=== PATIENT | male | born 1940 | race Caucasian/White ===

== ENCOUNTER → 2017-04-09 | Outpatient (CLI) | payer MEDICARE ==
[~2017-04-09] MED LIST: CATHETER FLUSH 10 ML SYR IV PRN; IOHEXOL 350 MG/ML 100 ML (OMNIPAQUE 350) VIAL IV ONE; NS 100 ML (IVPB) BAG IV ONE
--- NOTE | 2017-04-09 16:46 | Diagnostic Imaging Report ---
PROCEDURE: CT chest, abdomen, and pelvis with contrast. TECHNIQUE: Multiple contiguous axial images were obtained through the chest, abdomen, and pelvis after the administration of intravenous contrast. INDICATION: Weight loss. Cough. 100 mL of Omnipaque 350 is administered intravenously. FINDINGS: CT chest: There is advanced upper lobe predominant emphysema seen bilaterally. Also significant emphysema involvement in addition is seen in the right lower lobe. There is a right upper lobe prominent consolidation noted with the air bronchograms favored to be related to pneumonia. There is a rbupt-ba-rvsxoxue right pleural effusion. Basilar subsegmental atelectasis is seen in the right lower lobe. The heart size is normal. The thoracic aorta is normal in caliber. No pericardial effusion. No effusion on the left side. The osseous structures demonstrate degenerative changes with lower thoracic spine disc changes and vacuum phenomena noted. CT abdomen and pelvis: The liver, the gallbladder, the spleen, the pancreas, and the adrenal glands appear unremarkable. The kidneys have symmetric enhancement. Bilateral simple appearing renal cysts are seen. There is no hydronephrosis in either kidney. The abdominal aorta is normal in caliber. No para-aortic significantly enlarged lymph node is seen. There is a suggestion of a high-grade stenosis and probable occlusion in the left common iliac and left external iliac arteries. At least moderate stenosis in the proximal right common iliac artery and in the right external iliac artery is seen. There is no bowel obstruction. No significant free fluid or fluid collection in the abdomen or pelvis is seen. Moderate amount of fecal material is seen in the colon and rectum. The mesenteric fat is sparse as well as subcutaneous fat in the body suggestive of cachexia. SMA and the celiac trunk and MELANI are generally patent. The osseous structures demonstrate prominent degenerative changes. IMPRESSION: CT chest: 1. Airspace consolidation in the right upper lobe is presumably related to pneumonia, with an associated [id number] right pleural effusion. Correlate clinically and with follow-up radiographs in six weeks is recommended to ensure complete resolution. 2. Advanced emphysema. 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 Correlate clinically. Dictated by: Dictated on workstation # [id number]
== END ==
LOC: RAD 14:30
PROVIDERS: ATTEND Pediatrics
DX: J43.9 Emphysema, unspecified (principal); I74.5 Embolism and thrombosis of iliac artery; R63.4 Abnormal weight loss
CPT/HCPCS: 71260; 74177

== ENCOUNTER → 2017-04-22 | Outpatient (CLI) | payer MEDICARE ==
--- NOTE | 2017-04-23 10:53 | Diagnostic Imaging Report ---
EXAMINATION: PET-CT. TECHNIQUE: Serum glucose level at the time of the study is: 93 mg/dL. 11.1 mCi of FDG was administered intravenously followed by obtaining PET images with corresponding noncontrast CT scan images. The CT scan was performed for anatomic correlation and attenuation correction and was not performed according to the diagnostic protocol of the areas covered. The scan was performed from the whole body. INDICATION: Lung mass. FINDINGS: There is symmetric uptake in the brain. In the neck, there is no suspicious hypermetabolic mass. In the chest, there is significant hypermetabolism involving the area of consolidation in the right upper lobe and in the right lung apex as well as diffuse hypermetabolism along the pleura, suggestive of malignancy. The highest SUV is within the right upper lobe parenchyma with an 8.5 maximum SUV of most of the area of consolidation. There is a particularly significantly hypermetabolic nodular area, however, in the medial aspect of the right middle lobe with a maximum SUV of 20. There is a moderate right pleural effusion. There is hypermetabolism along the mediastinal medial aspect on the right side which is favored to be pleural based rather than an actual mediastinal lymph node involvement. No contralateral lung or hilar involvement is seen. In the abdomen and pelvis, physiologic excretion in the urinary tract is seen and likely physiologic mild areas of activity are seen in the bowel loops. There is a hypermetabolic lesion seen within the left sacral ala superiorly with a maximum SUV of 5.8. It is estimated to be about 1 cm in size and demonstrates no clear lytic or sclerotic lesion on the CT scan. This is, however, concerning for metastatic disease. In the lower extremities, there is no hypermetabolic mass seen. IMPRESSION: 1. Findings are suggestive of lung cancer in an infiltrative pattern along the right upper lobe consolidation with pleural metastasis on the right side. Mesothelioma with right upper lobe lung involvement is the most likely consideration. 2. Hypermetabolic lesion estimated to be around 1 cm in size in the upper aspect of the left sacral ala, occult by CT scan, is suspicious for bone metastasis. Dictated by: Dictated on workstation # [id number]
== END ==
LOC: RAD 11:18
PROVIDERS: ATTEND Pediatrics
DX: R91.8 Other nonspecific abnormal finding of lung field (principal)
CPT/HCPCS: 78816

== ENCOUNTER 2017-05-13 13:49 | Inpatient (IN) | payer MEDICARE ==
[~2017-05-13] VITALS: Ht 177.8 cm; Wt 49.0 kg
[~2017-05-13 13:49] MED LIST changes: -CATHETER FLUSH 10 ML SYR IV PRN; -IOHEXOL 350 MG/ML 100 ML (OMNIPAQUE 350) VIAL IV ONE; +LEVO750T9 PO; -NS 100 ML (IVPB) BAG IV ONE; +ONDA8TAB9 SL; +POLY119P5 PO; +PROM25SU43 RC
--- OUTSIDE RECORDS SUMMARY | 2017-05-13 15:20 | XMS REPORT | Continuity of Care Document ---
Author Author [facility] Address Unknown Phone Unavailable Allergies Medications Problems Procedures Results Encounters ACCT No. Visit Date/Time Discharge Status Pt. Type Provider Facility Loc./Unit Complaint [id number] 12/11/2016 10:31:08 12/11/2016 23: 59:59 CLS Outpatient JODI BRAR
[2017-05-13] MEDS ORDERED: DOCUSATE SODIUM 100 MG (COLACE) CAP PO PRN (16:00)
[2017-05-13] MEDS ORDERED: CATHETER FLUSH 10 ML SYR IV PRN (16:00)
[2017-05-13 16:06] VITALS: BP 97/55
[2017-05-13] MEDS ORDERED: LEVO750T39 PO (16:10)
[2017-05-13] MEDS ORDERED: POLY255P PO (16:10)
[2017-05-13] MEDS ORDERED: PROM25SU44 RC (16:10)
[2017-05-13] MEDS ORDERED: MIRT15TA6 PO (16:10)
[2017-05-13] MEDS ORDERED: ONDA8TAB13 SL (16:10)
[2017-05-13] MEDS: NS IV 1000 ML 1,000 ML IV SCH ×2 (16:44→23:58)
[2017-05-13 17:24] LABS: BASOPHILS % (AUTO) 0 % (0-10); EOSINOPHILS % (AUTO) 0 % (0-10); LYMPHOCYTES # (AUTO) 0.8 X 10^3 (1.0-4.0); LYMPHOCYTES % (AUTO) 10 % (12-44); MEAN CORPUSCULAR HEMOGLOBIN 29 PG (25-34); MEAN CORPUSCULAR HGB CONC 33 G/DL (32-36); MEAN CORPUSCULAR VOLUME 87 FL (80-99); MEAN PLATELET VOLUME 9.3 FL (7.4-10.4); MONOCYTES # (AUTO) 0.4 X 10^3 (0.0-1.0); MONOCYTES % (AUTO) 5 % (0-12); NEUTROPHILS # (AUTO) 6.8 X 10^3 (1.8-7.8); NEUTROPHILS % (AUTO) 85 % (42-75); PLATELET COUNT 314 10^3/uL (130-400); RED BLOOD COUNT 3.93 10^6/uL (4.35-5.85); RED CELL DISTRIBUTION WIDTH 16.6 % (10.0-14.5)
[2017-05-13 17:52] LABS: ALANINE AMINOTRANSFERASE 8 U/L (0-55); ALBUMIN 3.1 GM/DL (3.2-4.5); ANION GAP 18 MMOL/L (5-14); ASPARTATE AMINO TRANSFERASE 28 U/L (5-34); BILIRUBIN,TOTAL 0.6 MG/DL (0.1-1.0); BLOOD UREA NITROGEN 22 MG/DL (7-18); BUN/CREATININE RATIO 21; CALCIUM 9.8 MG/DL (8.5-10.1); CARBON DIOXIDE 20 MMOL/L (21-32); CHLORIDE 101 MMOL/L (98-107); CREATININE SERUM 1.06 MG/DL (0.60-1.30); GFR ESTIMATED > 60; GLUCOSE 81 MG/DL (70-105); MAGNESIUM 1.6 MG/DL (1.8-2.4); POTASSIUM 4.1 MMOL/L (3.6-5.0); SODIUM 139 MMOL/L (135-145); TOTAL PROTEIN 7.5 GM/DL (6.4-8.2)
[2017-05-13 18:06] LABS: KETONES,URINE 4+ (NEGATIVE); LEUKOCYTE ESTERASE ,URINE 1+ (NEGATIVE); NITRITE,URINE NEGATIVE (NEGATIVE); PH,URINE 5 (5-9); PROTEIN,URINE 2+ (NEGATIVE); UROBILINOGEN,URINE 1 MG/DL (NORMAL)
[2017-05-13] MEDS: ONDANSETRON 4 MG/2 ML (SDV) Z0FRAN IVP PRN (18:07)
[2017-05-13 18:17] LABS: BILIRUBIN,URINE 1+ (NEGATIVE)
[2017-05-13 18:18] LABS: HYALINE CASTS, URINE >50 /LPF
[2017-05-13] MEDS ORDERED: INFLUENZA TRIvalent 2017-2018 0.5 ML/45 MCG SYR IM ONE (19:15)
--- NOTE | 2017-05-13 19:49 | Diagnostic Imaging Report ---
EXAMINATION: PA and lateral views of the chest. COMPARISON: 05/08/2017. INDICATION: Cough, shortness of breath, and weight loss. FINDINGS: There is right perihilar consolidation, stable from the previous exam with right upper lobe patchy infiltrate seen. There is pleural thickening and small to moderate-sized pleural effusion on the right side noted. The left lung is clear. The heart size is normal. No pneumothorax. IMPRESSION: Stable large consolidation in the right perihilar region with suspected underlying mass and right upper lobe patchy infiltrates. There is right-sided pleural thickening and pleural effusion as well. No significant change. Dictated by: Dictated on workstation # [id number]
[2017-05-13 20:00] VITALS: BP 119/64
--- NOTE | 2017-05-13 20:43 | History & Physicial (CHS) ---
HPI History of Present Illness: 77 yo male sent to hospital for direct admission due to marked debility and inability to keep down any food for a week or more. He reports a history of weight loss starting November of up 60 lbs currently. In the last 3 weeks, he developed cough, nausea and vomiting with any intake, fatigue and shortness of breath. He was seen at [facility] and had a CXR with concerning findings followed by a CT scan which showed right upper lobe abnormality concerning for lung cancer, followed by PET scan which showed lesion in left iliac. He was to have an biopsy but has become so weak and sick to his stomach that his family didn't feel he would make it to his biopsy. Additionally, he has told Dr. Schultz that he does not want chemotherapy or radiation, etc even if he has lung cancer. He states he is concerned about racking up large medical bills before he dies which will burden his family. He also notes that he is 77 years old and has done what he wants with his life. Date seen by provider: May 13, 2017 Time Seen by Provider: 17:10 Attending Physician Kaila Ugalde MD PCP Liliane Schultz MD Consult Date of Admission May 13, 2017 at 15:12 Home Medications Home Medications Reviewed patient Home Medication Reconciliation Form Allergies Coded Allergies: No Known Drug Allergies (Unverified , 05/13/17) OHC-Glhtkf-Fbglog Hx Patient Social History Alcohol Use: Denies Use Recreational Drug Use: No Smoking Status: Current Everyday Smoker Type Used: Cigars Recent Foreign Travel: No Contact w/other who traveled: No Recent Hopitalizations: No Physical Abuse Screen: No Sexual Abuse: No Past Medical History PMHx: Denies PSurgHx: Denies Family Medical History Significant Family History: No Pertinent Family Hx Review of Systems ([facility]) Constitutional: No fever, malaise, weakness EENTM: No blurred vision, No double vision, No nose congestion Respiratory: cough, dyspnea on exertion, short of breath Cardiovascular: No chest pain Gastrointestinal: No abdominal pain, constipation, No diarrhea, No melena, nausea, vomiting Genitourinary: no symptoms reported Musculoskeletal: No joint pain, muscle pain Skin: No rash Psychiatric/Neurological: No Symptoms Reported, Denies Headache, Other ( dizziness with standing) Physical Exam-([facility]) Physical Exam Vital Signs VS - Last 72 Hours, by Label 05/13/17 16:06 Temp 96.3 Pulse 97 Resp 18 B/P (MAP) 97/55 Pulse Ox 94 O2 Delivery Room Air Capillary Refill : General Appearance: no apparent distress, cachetic Respiratory: no accessory muscle use, decreased breath sounds, wheezing Cardiovascular: no edema, no murmur, other (occasional irregular beat) Gastrointestinal: normal bowel sounds, non tender, soft Extremities: no pedal edema Neurologic/Psychiatric: alert, normal mood/affect Skin: warm/dry Clinical Quality Measures DVT/VTE Risk/Contraindication: Risk Factor Score Per Nursin RFS Level Per Nursing on Admit: 4+=Very High Copy Copies To 1: LILIANE SCHULTZ MD Assessment/Plan Assessment/Plan Admission Dx Debility Nausea/vomiting Suspected lung cancer Plan Debility- PT, suspect due to combination of likely lung cancer and poor intake Check CBC Nausea/vomiting- ondansetron, promethazine prn, suspect due to underlying disease noted below -Check labs for possible dehydration/renal insufficiency Suspected lung cancer with associated wasting- work-up in progress, CT concerning for R sided mass, has already been treated with levofloxacin for possible infiltrate also associated. Is afebrile, will follow-up CBC. -Had a long discussion with patient about his wishes, he is insistent he doesn' t want to "rack up bills", but he also does state he is satisfied with his life and that he knows everyone has to sometime and he is fairly confident he does not want to go through chemotherapy/radiation or other aggressive treatments. He is certain he does not want an attempt at resuscitation and requests to be DNAR status. His family is not present emilee, discussed that it would be good to have a family discussion, as outpatient consideration for hospice has already been done and declined. Discussed whether he wants to proceed with biopsy and he is undecided, but seems to be at least somewhat interested in proceeding if it is not an aggressive procedure. I agree proceeding with biopsy may be helpful for him and his family to confirm his diagnosis, but if he is confident he would not pursue any treatment, a biopsy is not needed. He will discuss further with his emilee and we will readdress tomorrow. DVT ppx- enoxaparin KAILA UGALDE MD May 13, 2017 20:43
[2017-05-13] MEDS ORDERED: MAGNESIUM 1 GM/100 ML IVPB 100 ML IV ONE (21:15)
[2017-05-14] VITALS: BP 104/51
[2017-05-14 04:00] VITALS: BP 101/46
[2017-05-14 06:19] LABS: MEAN PLATELET VOLUME 8.6 FL (7.4-10.4); RED BLOOD COUNT 3.09 10^6/uL (4.35-5.85); RED CELL DISTRIBUTION WIDTH 16.3 % (10.0-14.5); WHITE BLOOD COUNT 6.7 10^3/uL (4.3-11.0)
[2017-05-14] MEDS: NS IV 1000 ML 1,000 ML IV SCH ×4 (06:28→20:06)
[2017-05-14 06:32] LABS: ANION GAP 12 MMOL/L (5-14); BLOOD UREA NITROGEN 19 MG/DL (7-18); BUN/CREATININE RATIO 24; CALCIUM 8.5 MG/DL (8.5-10.1); CARBON DIOXIDE 22 MMOL/L (21-32); CHLORIDE 105 MMOL/L (98-107); GFR ESTIMATED > 60; GLUCOSE 78 MG/DL (70-105); MAGNESIUM 1.8 MG/DL (1.8-2.4); POTASSIUM 3.6 MMOL/L (3.6-5.0); SODIUM 139 MMOL/L (135-145)
[2017-05-14] MEDS: RT-ALBUTEROL/IPRATROPIUM 3 ML (DUONEB) VIAL INH SCH ×3 (07:45→21:38)
[2017-05-14 08:00] VITALS: BP 94/49
--- NOTE | 2017-05-14 09:22 | Physical Therapy Evaluation ---
PT Evaluation-General Medical Diagnosis Admission Date May 13, 2017 at 15:12 Medical Diagnosis: Debility, Nausea, vomiting Onset Date: May 13, 2017 Therapy Diagnosis Therapy Diagnosis: weakness Height/Weight Height (Feet): 5 Height (Inches): 10.00 Weight (Pounds): 108 Weight (Ounces): 0.0 Precautions Precautions/Isolations: Fall Prevention, Standard Precautions Weight Bear Status Right Lower Extremity: Right Full Weight Bearing Left Lower Extremity: Left Full Weight Bearing Referral Physician: Monica Ugalde MD Reason for Referral: Evaluation/Treatment, Strengthening, Gait Medical History Pertinent Medical History: Smoking Reviewed History: Yes Social History Home: Single Level Current Living Status: Spouse Entry Into Home: Stairs Without Railing PT Steps Into Home: 3 Prior/Core FIM Prior Level of Function Functional [place] Measure 0=Not Assessed/NA 4=Minimal Assistance 1=Total Assistance 5=Supervision or Setup 2=Maximal Assistance 6=Modified [place] 3=Moderate Assistance 7=Complete [place] Bed Mobility: 7 Transfers (B,C,W/C) (FIM): 7 Gait: 7 Locomotion: 7 PT Evaluation-Current Subjective Patient is laying in bed upon PT entering the room. Patient's is present. Patient reports he is doing fine today other than recent weakness due to extreme weight loss and inability to eat. He agrees to PT eval. Pain Numeric Pain Scale: 0-No Pain Location: No Pain Reported Objective Patient Orientation: Person, Place, Normal For Age Attachments: IV ROM/Strength ROM Upper Extremities WNL ROM Lower Extremities WNL Strength Upper Extremities 5/5 gross bilateral Strength Lower Extremities 5/5 gross bilateral Integumentary/Posture Integumentary skin intact Bowel Incontinence: No Bladder Incontinence: No Neuromuscular (Tone, Coordination, Reflexes) NT Sensory Vision: Functional Hearing: Impaired Sensation Right Upper Extremit: Intact Sensation Left Upper Extremity: Intact Sensation Right Lower Extremit: Intact Sensation Left Lower Extremity: Intact Transfers Functional [place] Measure 0=Not Assessed/NA 4=Minimal Assistance 1=Total Assistance 5=Supervision or Setup 2=Maximal Assistance 6=Modified [place] 3=Moderate Assistance 7=Complete [place] Transfers (B, C, W/C) (FIM): 5 Scootin Rollin Supine to/from Sit: 5 Sit to/from Stand: 5 Patient performed all observed transfers with SBA from PT. Gait Mode of Locomotion: Walk Anticipated Mode of Locomotion: Walk Gait (FIM): 4 Distance: 300' Gait Level of Assist: 4 Gait Persons Needed: 1 Comments/Gait Description Patient walks with normal reciprocal gait pattern. Patient does not use an assistive device, but PT holds on to patient gait belt due to recent reported weakness. Balance Sitting Static: Normal Sitting Dynamic: Normal Standing Static: Normal Standing Dynamic: Normal Assessment/Needs Patient has excellent tolerance for gait and therapeutic intervention. PT will progress patient gait and exercise per his tolerance. Rehab Potential: Good PT Short Term Goals Short Term Goals Time Frame: May 21, 2017 Transfers (B,C,W/C) (FIM): 7 Gait (FIM): 7 Gait Distance Comment: 300' Gait Level of Assist: 7 PT Plan Problem List Problem List: Activity Tolerance, Functional Strength, Safety, Balance, Gait, Transfer Treatment/Plan Treatment Plan: Continue Plan of Care Treatment Plan: Concurrent Therapy, Functional Activity Mindy, Functional Strength, Gait, Safety, Therapeutic Exercise, Transfers Treatment Duration: May 21, 2017 Frequency: 6 times per week Estimated Hrs Per Day: .25 hour per day (15-30') Patient and/or Family Agrees t: Yes Safety Risks/Education Patient Education: Gait Training, Transfer Techniques, Correct Positioning, Safety Issues Teaching Recipient: Patient Teaching Methods: Demonstration, Discussion Response to Teaching: Verbalize Understanding, Return Demonstration, Reinforcement Needed Discharge Recommendations Plan Patient will perform bed mobility and transfer training, balance and endurance training, functional strengthening, stair training, gait training, and education to improve functional mobility and independence at home. Therapy D/C Recommendations: Home w/ Family Support Time/GCodes Time In: 850 Time Out: 910 Total Billed Treatment Time: 20 Total Billed Treatment 1 visit EVMod 20 min G Codes Necessary: Yes PT/OT Therapy GCodes Therapy Functional Limitation: Physical Therapy Test(s)/Tool used to determine: Level of Assistance Scale Functional Limitation-Current Charge Code: MOBCUR Modifier: CI Functional Limitation-Goal Charge Code: MOBGOAL Modifier: ESTELLE STAFFORD PT May 14, 2017 09:22
--- NOTE | 2017-05-14 10:24 | Speech Therapy Progress Note ---
Therapy Progress Note Speech pathology consult received and the patient's chart was reviewed. The clinician discussed the patient with the RN, who stated his was NPO for a biopsy. Due to this, the clinician will attempt the swallowing evaluation at a later time. ROSALBA BILL May 14, 2017 10:24
[2017-05-14] MEDS ORDERED: PROM25TA14 PO (11:31)
[2017-05-14 12:00] VITALS: BP 106/54
--- NOTE | 2017-05-14 15:51 | Progress Note (SOAP) ---
Subjective Subjective/Events-last exam Lung biopsy was planned this am, but he reported he did not want done when Radiology nurse came to discuss. After further discussion with his and daughter, he is agreeable, plan for tomorrow. He is feeling a little better after IVF overnight. He still states he does not want aggressive treatment even if the biopsy proves a cancer. Review of Systems Date Seen by Provider: May 14, 2017 Time Seen by Provider: 11:36 Objective Exam Last Set of Vital Signs Vital Signs Date Time Temp Pulse Resp B/P (MAP) Pulse Ox O2 Delivery O2 Flow Rate FiO2 05/14/17 12:00 95.7 77 16 106/54 94 Room Air Capillary Refill : I&O Intake and Output 05/15/17 00:00 Intake Total 1100 ml Output Total 250 ml Balance 850 ml Intake Oral 100 ml IV Total 1000 ml Output Urine Total 250 ml General: Alert, No Acute Distress Neuro: Normal Speech Psych/Mental Status: Mental Status NL Results/Procedures Lab Laboratory Tests 05/13/17 16:26: Urine Color YELLOW, Urine Clarity CLEAR, Urine pH 5, Urine Specific Basye 1.025H, Urine Protein 2+H, Urine Glucose (UA) NEGATIVE, Urine Ketones 4+H, Urine Nitrite NEGATIVE, Urine Bilirubin 1+H, Urine Urobilinogen 1, Urine Leukocyte Esterase 1+H, Urine RBC (Auto) 1+H, Urine RBC NONE, Urine WBC 2-5, Urine Crystals NONE, Urine Bacteria NONE, Urine Casts PRESENT, Urine Hyaline Casts >50H, Urine Mucus SMALLH, Urine Culture Indicated NO 05/13/17 17:05: White Blood Count 8.0, Red Blood Count 3.93L, Hemoglobin 11.3L, Hematocrit 34L, Mean Corpuscular Volume 87, Mean Corpuscular Hemoglobin 29, Mean Corpuscular Hemoglobin Concent 33, Red Cell Distribution Width 16.6H, Platelet Count 314, Mean Platelet Volume 9.3, Neutrophils (%) (Auto) 85H, Lymphocytes (%) (Auto) 10L , Monocytes (%) (Auto) 5, Eosinophils (%) (Auto) 0, Basophils (%) (Auto) 0, Neutrophils # (Auto) 6.8, Lymphocytes # (Auto) 0.8L, Monocytes # (Auto) 0.4, Eosinophils # (Auto) 0.0, Basophils # (Auto) 0.0, Sodium Level 139, Potassium Level 4.1, Chloride Level 101, Carbon Dioxide Level 20L, Anion Gap 18H, Blood Urea Nitrogen 22H, Creatinine 1.06, Estimat Glomerular Filtration Rate > 60, BUN /Creatinine Ratio 21, Glucose Level 81, Calcium Level 9.8, Magnesium Level 1.6L , Total Bilirubin 0.6, Aspartate Amino Transf (AST/SGOT) 28, Alanine Aminotransferase (ALT/SGPT) 8, Alkaline Phosphatase 80, Total Protein 7.5, Albumin 3.1L 05/14/17 05:50: White Blood Count 6.7, Red Blood Count 3.09L, Hemoglobin 8.8#L, Hematocrit 27L, Mean Corpuscular Volume 86, Mean Corpuscular Hemoglobin 28, Mean Corpuscular Hemoglobin Concent 33, Red Cell Distribution Width 16.3H, Platelet Count 223, Mean Platelet Volume 8.6, Sodium Level 139, Potassium Level 3.6, Chloride Level 105, Carbon Dioxide Level 22, Anion Gap 12, Blood Urea Nitrogen 19H, Creatinine 0.80, Estimat Glomerular Filtration Rate > 60, BUN/Creatinine Ratio 24, Glucose Level 78, Calcium Level 8.5, Magnesium Level 1.8 Radiology CXR 05/13/17: IMPRESSION: Stable large consolidation in the right perihilar region with suspected underlying mass and right upper lobe patchy infiltrates. There is right-sided pleural thickening and pleural effusion as well. No significant change. Assessment/Plan Assessment/Plan Plan Debility- PT, suspect due to combination of likely lung cancer and poor intake Check CBC -05/14 Hgb decreased today, possibly hemodilution, monior Nausea/vomiting- ondansetron, promethazine prn, suspect due to underlying disease noted below -Check labs for possible dehydration/renal insufficiency -Labs on admit with AG acidosis, suspect from starvation ketoacidosis, improved with IVF overnight Suspected lung cancer with associated wasting- work-up in progress, CT concerning for R sided mass, has already been treated with levofloxacin for possible infiltrate also associated. Is afebrile, will follow-up CBC. 05/13- Had a long discussion with patient about his wishes, he is insistent he doesn't want to "rack up bills", but he also does state he is satisfied with his life and that he knows everyone has to sometime and he is fairly confident he does not want to go through chemotherapy/radiation or other aggressive treatments. He is certain he does not want an attempt at resuscitation and requests to be DNAR status. His family is not present emilee , discussed that it would be good to have a family discussion, as outpatient consideration for hospice has already been done and declined. Discussed whether he wants to proceed with biopsy and he is undecided, but seems to be at least somewhat interested in proceeding if it is not an aggressive procedure. I agree proceeding with biopsy may be helpful for him and his family to confirm his diagnosis, but if he is confident he would not pursue any treatment, a biopsy is not needed. He will discuss further with his emilee and we will readdress tomorrow. 05/14- he does want to pursue biopsy for further information and decision making purposes, but still does not feel he would want aggressive treatment unless there would be a very clear benefit- he does not want to be sick from chemotherapy and repeatedly states he is satisfied with his life and he knows everyone will eventually. His states she is having a hard time seeing him so weak and wonders if a feeding tube would be helpful. Discussed that this would not be beneficial if his goals of care are comfort, and would have questionable benefit even if he were interested in treatment because it is unclear how beneficial treatment would be especially given his already significant decline. They would like to continue to reassess as information is available and his clinical course progresses. DVT ppx- enoxaparin Clinical Quality Measures DVT/VTE Risk/Contraindication: Risk Factor Score Per Nursin RFS Level Per Nursing on Admit: 4+=Very High KAILA SANCHEZ MD May 14, 2017 3:51 pm
[2017-05-14 16:33] VITALS: BP 106/49
[2017-05-14 19:59] VITALS: BP 90/55
[2017-05-14] MEDS: ACETAMINOPHEN 500 MG TAB (TYLENOL) PO PRN (20:06)
[2017-05-15] VITALS: BP 117/56
[2017-05-15] MEDS: NS IV 1000 ML 1,000 ML IV SCH ×4 (02:39→22:32)
[2017-05-15 04:00] VITALS: BP 91/45
[2017-05-15] MEDS: ACETAMINOPHEN 500 MG TAB (TYLENOL) PO PRN (06:47)
[2017-05-15] MEDS: RT-ALBUTEROL/IPRATROPIUM 3 ML (DUONEB) VIAL INH SCH ×3 (07:03→20:32)
[2017-05-15 08:00] VITALS: BP 102/50
[2017-05-15 08:15] LABS: MEAN PLATELET VOLUME 9.4 FL (7.4-10.4); RED BLOOD COUNT 3.6 10^6/uL (4.35-5.85); RED CELL DISTRIBUTION WIDTH 16.5 % (10.0-14.5); WHITE BLOOD COUNT 7.5 10^3/uL (4.3-11.0)
[2017-05-15 08:31] LABS: ANION GAP 9 MMOL/L (5-14); BLOOD UREA NITROGEN 12 MG/DL (7-18); BUN/CREATININE RATIO 19; CALCIUM 7.9 MG/DL (8.5-10.1); CARBON DIOXIDE 20 MMOL/L (21-32); CHLORIDE 110 MMOL/L (98-107); CREATININE SERUM 0.64 MG/DL (0.60-1.30); GFR ESTIMATED > 60; GLUCOSE 91 MG/DL (70-105); SODIUM 139 MMOL/L (135-145)
--- NOTE | 2017-05-15 09:49 | Progress Note (SOAP) ---
Subjective Subjective/Events-last exam Plan for CT guided biopsy today. He states he is feeling okay. Walked some with PT yesterday. Was able to eat some food and keep it down yesterday. Review of Systems Date Seen by Provider: May 15, 2017 Time Seen by Provider: 08:50 Objective Exam Last Set of Vital Signs Vital Signs Date Time Temp Pulse Resp B/P (MAP) Pulse Ox O2 Delivery O2 Flow Rate FiO2 05/15/17 08:00 96.5 66 16 102/50 94 Room Air Capillary Refill : I&O Intake and Output 05/16/17 00:00 Intake Total 1995 ml Output Total 350 ml Balance 1645 ml Intake Oral 0 ml IV Total 1995 ml Output Urine Total 350 ml General: Alert, No Acute Distress, Other (cachectic) Lungs: Normal Air Movement Heart: Regular Rate, No Murmurs Neuro: Normal Speech Psych/Mental Status: Mental Status NL Results/Procedures Lab Laboratory Tests 05/15/17 08:00: White Blood Count 7.5, Red Blood Count 3.60L, Hemoglobin 10.4L, Hematocrit 31L, Mean Corpuscular Volume 86, Mean Corpuscular Hemoglobin 29, Mean Corpuscular Hemoglobin Concent 34, Red Cell Distribution Width 16.5H, Platelet Count 276, Mean Platelet Volume 9.4, Sodium Level 139, Potassium Level 3.0L, Chloride Level 110H, Carbon Dioxide Level 20L, Anion Gap 9, Blood Urea Nitrogen 12, Creatinine 0.64, Estimat Glomerular Filtration Rate > 60, BUN/Creatinine Ratio 19, Glucose Level 91, Calcium Level 7.9L 05/15/17 09:05: Radiology CXR 05/13/17: IMPRESSION: Stable large consolidation in the right perihilar region with suspected underlying mass and right upper lobe patchy infiltrates. There is right-sided pleural thickening and pleural effusion as well. No significant change. Assessment/Plan Assessment/Plan Plan Debility- PT, suspect due to combination of likely lung cancer and poor intake Check CBC -05/14 Hgb decreased today, possibly hemodilution, monior Nausea/vomiting- ondansetron, promethazine prn, suspect due to underlying disease noted below -Check labs for possible dehydration/renal insufficiency -Labs on admit with AG acidosis, suspect from starvation ketoacidosis, improved with IVF overnight Suspected lung cancer with associated wasting- work-up in progress, CT concerning for R sided mass, has already been treated with levofloxacin for possible infiltrate also associated. Is afebrile, will follow-up CBC. 05/13- Had a long discussion with patient about his wishes, he is insistent he doesn't want to "rack up bills", but he also does state he is satisfied with his life and that he knows everyone has to sometime and he is fairly confident he does not want to go through chemotherapy/radiation or other aggressive treatments. He is certain he does not want an attempt at resuscitation and requests to be DNAR status. His family is not present emilee , discussed that it would be good to have a family discussion, as outpatient consideration for hospice has already been done and declined. Discussed whether he wants to proceed with biopsy and he is undecided, but seems to be at least somewhat interested in proceeding if it is not an aggressive procedure. I agree proceeding with biopsy may be helpful for him and his family to confirm his diagnosis, but if he is confident he would not pursue any treatment, a biopsy is not needed. He will discuss further with his emilee and we will readdress tomorrow. 05/14- he does want to pursue biopsy for further information and decision making purposes, but still does not feel he would want aggressive treatment unless there would be a very clear benefit- he does not want to be sick from chemotherapy and repeatedly states he is satisfied with his life and he knows everyone will eventually. His states she is having a hard time seeing him so weak and wonders if a feeding tube would be helpful. Discussed that this would not be beneficial if his goals of care are comfort, and would have questionable benefit even if he were interested in treatment because it is unclear how beneficial treatment would be especially given his already significant decline. They would like to continue to reassess as information is available and his clinical course progresses. 05/15- biopsy today, plan for family meeting tomorrow pm to review his functional status and plans Hypokalemia- follow and replace as needed DVT ppx- enoxaparin Clinical Quality Measures DVT/VTE Risk/Contraindication: Risk Factor Score Per Nursin RFS Level Per Nursing on Admit: 4+=Very High KAILA SANCHEZ MD May 15, 2017 9:48 am
[2017-05-15 09:51] LABS: INR 1.2 (0.8-1.4); PROTHROMBIN TIME PATIENT 15.2 SEC (12.2-14.7)
[2017-05-15] MEDS: POTASSIUM CL 10MEQ/50ML IVPB 50 ML IV SCH ×4 (09:54→13:24)
--- NOTE | 2017-05-15 10:02 | Speech Therapy Progress Note ---
Therapy Progress Note Speech pathology re-attempted swallow evaluation. The patient remains NPO for planned biopsy. The patient's RN was not aware of a swallow evaluation or the necessity for one. Speech pathology will continue to follow up, as necessary. At this time, the patient's reduced intake appears secondary to noted illness. ROSALBA BILL May 15, 2017 10:02
--- NOTE | 2017-05-15 11:20 | Physical Therapy Daily Note ---
PT Daily Note-Current Subjective Patient states he is feeling fine today and that he has not gotten out of bed today. He agrees to PT. Pain Numeric Pain Scale: 0-No Pain Location: No Pain Reported Appearance Patient appears generally healthy. He is left supine in bed with call light and phone in reach. Mental Status Patient Orientation: Normal For Age Attachments: IV Transfers Functional [place] Measure 0=Not Assessed/NA 4=Minimal Assistance 1=Total Assistance 5=Supervision or Setup 2=Maximal Assistance 6=Modified [place] 3=Moderate Assistance 7=Complete IndependenceIRFPAI Quality Coding Scale 6 Independent with activity with or without an assistive device 5 Patient requires set up or clean up by helper. Patient completes activity by themselves 4 Supervision or touching assist (CGA). [place] provide cues , steadying assist 3 The helper provides less than half the effort to complete the activity 2 The helper provides more than half the effort to complete the activity 1 Dependent. The helper does all the effort to complete an activity 7 Patient refused to complete or attempt activity 9 The patient did not perform the activity before the current illness or injury 88 Not attempted due to Medical conditions or safety concerns Transfers (B, C, W/C) (FIM): 6 Scootin Rollin Supine to/from Sit: 6 Sit to/from Stand: 6 Patient mobility in bed is performed mod I. Weight Bearing Right Lower Extremity: Right Full Weight Bearing Left Lower Extremity: Left Full Weight Bearing Gait Training Gait (FIM): 6 Distance: 400' Gait Level of Assist: 6 Patient walks without an assistive device. He occasionally touches a handrail for steadying when he is getting fatigued. Assessment Current Status: Good Progress Patient ambulates safely in the hallway. He is only limited by weakness of his LE due to recent weight loss and inactivity. PT will continue intervention to improve gait distance as well as muscular endurance and strength. PT Short Term Goals Short Term Goals Time Frame: May 21, 2017 Transfers (B,C,W/C) (FIM): 7 Gait (FIM): 7 Gait Distance Comment: 300' Gait Level of Assist: 7 PT Plan Problem List Problem List: Activity Tolerance, Functional Strength, Safety, Balance, Gait, Transfer Treatment/Plan Treatment Plan: Continue Plan of Care Treatment Plan: Concurrent Therapy, Functional Activity Mindy, Functional Strength, Gait, Safety, Therapeutic Exercise, Transfers Treatment Duration: May 21, 2017 Frequency: 6 times per week Estimated Hrs Per Day: .25 hour per day (15-30') Patient and/or Family Agrees t: Yes Time/GCodes Time In: 1018 Time Out: 1031 Total Billed Treatment Time: 13 Total Billed Treatment 1 visit GT 13 min PT/OT Therapy GCodes Therapy Functional Limitation: Physical Therapy Test(s)/Tool used to determine: Level of Assistance Scale Functional Limitation-Current Charge Code: MOBCUR Modifier: CI Functional Limitation-Goal Charge Code: MOBGOAL Modifier: POOJA LUJAN PT May 15, 2017 11:19
[2017-05-15] MEDS ORDERED: fentaNYL INJECTION 100 MCG/2 ML AMP ONE (11:23)
[2017-05-15] MEDS ORDERED: LIDOCAINE 1% INJ 20 ML (XYLOCAINE) VIAL ONE (11:23)
[2017-05-15 12:00] VITALS: BP 104/55
[2017-05-15] MEDS ORDERED: LIDOCAINE 1% INJ 20 ML (XYLOCAINE) VIAL INJ ONE (13:00)
[2017-05-15] MEDS ORDERED: HYDROcodone/APAP 5 MG/325 MG (LORTAB) TAB PO PRN (13:30)
--- NOTE | 2017-05-15 13:30 | Pre-Procedure Progress Note ---
Pre-Procedure Progress Note H&P Reviewed The H&P was reviewed, patient examined and no changes noted. Date H&P Reviewed: May 15, 2017 Time H&P Reviewed: 10:00 Pre-Procedure Diagnosis: right lung mass STEPHANIE MILLER MD May 15, 2017 13:30
--- NOTE | 2017-05-15 14:48 | Diagnostic Imaging Report ---
Expiration AP view of the chest. INDICATION: Right thoracic mass, status post biopsy. FINDINGS: There is a moderate right pleural effusion and increased right perihilar infiltrates with no evidence of pneumothorax. Central right lung and pleural-based masses are suspected. The left lung is clear of focal infiltrate with chronic appearing interstitial thickening. The heart size is normal. When compared to 05/13/17, there is increased right pleural effusion. IMPRESSION: Increased right pleural effusion. Right perihilar and subpleural infiltrates and masses are again noted. Dictated by: Dictated on workstation # [id number]
[2017-05-15 15:30] VITALS: BP 100/53
--- NOTE | 2017-05-15 17:21 | Diagnostic Imaging Report ---
EXAMINATION: CT-guided biopsy-pleura. INDICATION: Pleural-based masses in the right hemothorax. Current history and physical and other medical records are reviewed prior to the procedure. CONSENT: Informed consent was obtained from the patient. The risks, benefits, potential complications and alternatives were reviewed and all questions answered to the patient's satisfaction. The patient's vital signs, cardiac rhythm, and pulse oximetry were observed throughout the procedure by qualified nursing personnel. Sedation/medications: none. FINDINGS: Pleural-based mass in the inferior medial right hemithorax among other from pleural based masses and lung masses are seen. There is also advanced emphysema and right pleural effusion of moderate size.. PROCEDURE: After maximal sterile barrier technique preparation and draping, 1% lidocaine was utilized for local anesthesia. With the patient in left side down position, and via posterior intercostal approach, a 17-gauge guide needle is introduced into the right pleural based paraspinal mass under CT scan guidance. After confirming adequate positioning with saved CT images, multiple 18 gauge core biopsy specimens were obtained. The patient tolerated the procedure well with no immediate complications. IMPRESSION: Successful CT-guided biopsy of inferior medial the right pleural-based mass. Dictated by: Dictated on workstation # [id number]
[2017-05-15 20:00] VITALS: BP 93/50
[2017-05-16] VITALS (7 sets, daily range): BP systolic 99–121; BP diastolic 51–62
[2017-05-16] MEDS: ONDANSETRON 4 MG/2 ML (SDV) Z0FRAN IVP PRN (04:59)
[2017-05-16] MEDS: NS IV 1000 ML 1,000 ML IV SCH ×2 (05:06→10:36)
[2017-05-16 06:25] LABS: MEAN PLATELET VOLUME 9.6 FL (7.4-10.4); RED BLOOD COUNT 3.59 10^6/uL (4.35-5.85); RED CELL DISTRIBUTION WIDTH 16.5 % (10.0-14.5)
[2017-05-16 06:45] LABS: ANION GAP 11 MMOL/L (5-14); BLOOD UREA NITROGEN 9 MG/DL (7-18); BUN/CREATININE RATIO 14; CALCIUM 7.9 MG/DL (8.5-10.1); CARBON DIOXIDE 18 MMOL/L (21-32); CHLORIDE 109 MMOL/L (98-107); CREATININE SERUM 0.63 MG/DL (0.60-1.30); GFR ESTIMATED > 60; GLUCOSE 65 MG/DL (70-105); POTASSIUM 3.3 MMOL/L (3.6-5.0); SODIUM 138 MMOL/L (135-145)
[2017-05-16] MEDS: RT-ALBUTEROL/IPRATROPIUM 3 ML (DUONEB) VIAL INH SCH ×3 (06:59→18:52)
--- NOTE | 2017-05-16 08:28 | Speech Therapy Progress Note ---
Therapy Progress Note The speech pathologist followed up with the patient's RN, Swati, on this date. Per RN, the patient is swallowing "fine" and does not appear to be having any difficulty or displaying any signs/symptoms of aspiration. Both parties agreed, the consult was most likely generated due to reduced oral intake which is secondary to his current illness, not an underlying dysphagia. At this time, the clinician will sign off. If concerns are noted, the clinician asked Swati to re-consult the therapist, who will promptly complete the bedside swallowing evaluation. ROSALBA BILL May 16, 2017 08:28
[2017-05-16] MEDS: POTASSIUM CL 10MEQ/50ML IVPB 50 ML IV SCH ×4 (09:29→12:50)
--- NOTE | 2017-05-16 09:44 | Physical Therapy Daily Note ---
PT Daily Note-Current Subjective Patient agrees to go for a walk to today. He states he feels the same as he has. Pain Numeric Pain Scale: 0-No Pain Location: No Pain Reported Appearance Patient appears generally healthy. He is left with family supine in bed with call light and phone in reach. Mental Status Patient Orientation: Normal For Age Attachments: IV Transfers Functional [place] Measure 0=Not Assessed/NA 4=Minimal Assistance 1=Total Assistance 5=Supervision or Setup 2=Maximal Assistance 6=Modified [place] 3=Moderate Assistance 7=Complete IndependenceIRFPAI Quality Coding Scale 6 Independent with activity with or without an assistive device 5 Patient requires set up or clean up by helper. Patient completes activity by themselves 4 Supervision or touching assist (CGA). [place] provide cues , steadying assist 3 The helper provides less than half the effort to complete the activity 2 The helper provides more than half the effort to complete the activity 1 Dependent. The helper does all the effort to complete an activity 7 Patient refused to complete or attempt activity 9 The patient did not perform the activity before the current illness or injury 88 Not attempted due to Medical conditions or safety concerns Transfers (B, C, W/C) (FIM): 7 Scootin Rollin Supine to/from Sit: 7 Sit to/from Stand: 7 Patient is independent with transfers. Weight Bearing Right Lower Extremity: Right Full Weight Bearing Left Lower Extremity: Left Full Weight Bearing Gait Training Gait (FIM): 7 Distance: >300' Gait Level of Assist: 7 Patient walks independently with normal step through gait pattern. He is educated to continue moving around and walking intermittently throughout the day to avoid sores and other sickness. Assessment Current Status: Good Progress Patient is independent in all therapeutic activities. PT plan is to dismiss patient from services at this point. PT Short Term Goals Short Term Goals Time Frame: May 21, 2017 Transfers (B,C,W/C) (FIM): 7 Gait (FIM): 7 Gait Distance Comment: 300' Gait Level of Assist: 7 PT Plan Treatment/Plan Treatment Plan: Discontinue PT, goals met Treatment Plan: Concurrent Therapy, Functional Activity Mindy, Functional Strength, Gait, Safety, Therapeutic Exercise, Transfers Treatment Duration: May 21, 2017 Frequency: 6 times per week Estimated Hrs Per Day: .25 hour per day (15-30') Patient and/or Family Agrees t: Yes Dismissal from PT services Safety Risks/Education Patient Education: Gait Training, Reviewed Precautions, Safety Issues Teaching Recipient: Patient Teaching Methods: Discussion Response to Teaching: Verbalize Understanding Discharge Recommendations Therapy D/C Recommendations: Home w/ Family Support Time/GCodes Time In: 858 Time Out: 912 Total Billed Treatment Time: 14 Total Billed Treatment 1 visit GT 14 min G Codes Necessary: Yes PT/OT Therapy GCodes Therapy Functional Limitation: Physical Therapy Test(s)/Tool used to determine: Level of Assistance Scale Functional Limitation-Current Charge Code: MOBCUR Modifier: CI Functional Limitation-Goal Charge Code: MOBGOAL Modifier: CH Functional Limitation-D/C Charge Codes: MOBDC Modifier: CH POOJA PANCHAL PT May 16, 2017 09:44
--- NOTE | 2017-05-16 13:35 | Progress Note (SOAP) ---
Subjective Subjective/Events-last exam Afebrile, no acute events. He tolerated his CT guided biopsy well and denies concerns. He ate a very small amount yesterday evening and vomited this morning around 5. He did just eat some oatmeal which has stayed down so far. Review of Systems Date Seen by Provider: May 16, 2017 Time Seen by Provider: 12:00 Objective Exam Last Set of Vital Signs Vital Signs Date Time Temp Pulse Resp B/P (MAP) Pulse Ox O2 Delivery O2 Flow Rate FiO2 05/16/17 08:15 Room Air 05/16/17 08:00 98.1 83 18 119/57 93 Capillary Refill : I&O Intake and Output 05/16/17 23:59 Intake Total 1000 ml Output Total 700 ml Balance 300 ml Intake Oral 0 ml IV Total 1000 ml Output Urine Total 700 ml # Bowel Movements 1 General: Alert, No Acute Distress, Other (cachectic) Lungs: Other (no respiratory distress) Neuro: Normal Speech Psych/Mental Status: Mental Status NL Results/Procedures Lab Laboratory Tests 05/16/17 05:48: White Blood Count 8.0, Red Blood Count 3.59L, Hemoglobin 10.3L, Hematocrit 31L, Mean Corpuscular Volume 86, Mean Corpuscular Hemoglobin 29, Mean Corpuscular Hemoglobin Concent 34, Red Cell Distribution Width 16.5H, Platelet Count 294, Mean Platelet Volume 9.6, Sodium Level 138, Potassium Level 3.3L, Chloride Level 109H, Carbon Dioxide Level 18L, Anion Gap 11, Blood Urea Nitrogen 9, Creatinine 0.63, Estimat Glomerular Filtration Rate > 60, BUN/Creatinine Ratio 14, Glucose Level 65L, Calcium Level 7.9L Radiology CXR 05/13/17: IMPRESSION: Stable large consolidation in the right perihilar region with suspected underlying mass and right upper lobe patchy infiltrates. There is right-sided pleural thickening and pleural effusion as well. No significant change. Assessment/Plan Assessment/Plan Plan Debility- PT, suspect due to combination of likely lung cancer and poor intake Check CBC -05/14 Hgb decreased today, possibly hemodilution, monitor 05/16 stable at 10.4 Nausea/vomiting- ondansetron, promethazine prn, suspect due to underlying disease noted below -Check labs for possible dehydration/renal insufficiency -Labs on admit with AG acidosis, suspect from starvation ketoacidosis, improved with IVF overnight 05/16 persistent and with hypokalemia, discussed with him and family and he wants to consider whether a feeding tube may be needed. Discussed that it would be appropriate to defer that decision until biopsy results are available to determine treatment plan, especially since he is not entirely confident if he wants to pursue treatment even if a reasonable option is available. He is interested in starting the process, discussed that he would need an EGD first to rule out some sort of compression, etc causing his nausea/vomiting and if not present, surgery still may not recommend a feeding tube. With this understanding, he and family do want to proceed with Surgery consult and likely EGD, consult placed. Hypokalemia- follow and replace as needed Suspected lung cancer with associated wasting- work-up in progress, CT concerning for R sided mass, has already been treated with levofloxacin for possible infiltrate also associated. Is afebrile, will follow-up CBC. 05/13- Had a long discussion with patient about his wishes, he is insistent he doesn't want to "rack up bills", but he also does state he is satisfied with his life and that he knows everyone has to sometime and he is fairly confident he does not want to go through chemotherapy/radiation or other aggressive treatments. He is certain he does not want an attempt at resuscitation and requests to be DNAR status. His family is not present emilee , discussed that it would be good to have a family discussion, as outpatient consideration for hospice has already been done and declined. Discussed whether he wants to proceed with biopsy and he is undecided, but seems to be at least somewhat interested in proceeding if it is not an aggressive procedure. I agree proceeding with biopsy may be helpful for him and his family to confirm his diagnosis, but if he is confident he would not pursue any treatment, a biopsy is not needed. He will discuss further with his emilee and we will readdress tomorrow. 05/14- he does want to pursue biopsy for further information and decision making purposes, but still does not feel he would want aggressive treatment unless there would be a very clear benefit- he does not want to be sick from chemotherapy and repeatedly states he is satisfied with his life and he knows everyone will eventually. His states she is having a hard time seeing him so weak and wonders if a feeding tube would be helpful. Discussed that this would not be beneficial if his goals of care are comfort, and would have questionable benefit even if he were interested in treatment because it is unclear how beneficial treatment would be especially given his already significant decline. They would like to continue to reassess as information is available and his clinical course progresses. 05/15- biopsy today, plan for family meeting tomorrow pm to review his functional status and plans 05/16- see notes under above diagnoses, at this time he wants to pursue any treatment that can be done until he has a formal diagnosis and more information about treatment options. Discussed creating a DPOA and living will and social work offered assistance in doing so if he desires DVT ppx- enoxaparin Clinical Quality Measures DVT/VTE Risk/Contraindication: Risk Factor Score Per Nursin RFS Level Per Nursing on Admit: 4+=Very High KAILA SANCHEZ MD May 16, 2017 1:35 pm
[2017-05-16] MEDS: D5 1/2 NS W/KCL 20 MEQ/L 1,000 ML IV SCH ×2 (13:55→23:48)
[2017-05-17] VITALS: BP 105/55
[2017-05-17 05:57] LABS: MEAN PLATELET VOLUME 9.4 FL (7.4-10.4); RED BLOOD COUNT 3.45 10^6/uL (4.35-5.85); RED CELL DISTRIBUTION WIDTH 16.6 % (10.0-14.5); WHITE BLOOD COUNT 7.4 10^3/uL (4.3-11.0)
[2017-05-17 06:24] LABS: ANION GAP 8 MMOL/L (5-14); BLOOD UREA NITROGEN 5 MG/DL (7-18); BUN/CREATININE RATIO 8; CALCIUM 8.1 MG/DL (8.5-10.1); CARBON DIOXIDE 20 MMOL/L (21-32); CHLORIDE 107 MMOL/L (98-107); CREATININE SERUM 0.65 MG/DL (0.60-1.30); GFR ESTIMATED > 60; GLUCOSE 115 MG/DL (70-105); MAGNESIUM 1.4 MG/DL (1.8-2.4); POTASSIUM 3.7 MMOL/L (3.6-5.0); SODIUM 135 MMOL/L (135-145)
[2017-05-17 08:00] VITALS: BP 105/50
[2017-05-17] MEDS: D5 1/2 NS W/KCL 20 MEQ/L 1,000 ML IV SCH ×2 (10:03→20:25)
[2017-05-17] MEDS: RT-ALBUTEROL/IPRATROPIUM 3 ML (DUONEB) VIAL INH SCH ×3 (10:32→19:45)
[2017-05-17 16:00] VITALS: BP 109/55
--- NOTE | 2017-05-17 19:42 | Progress Note (SOAP) ---
Subjective Subjective/Events-last exam Pt reports feeling better. Feeling more emotionally positive. Tolerated lung biopsy. Still unsure what he wants to do for treatment. Review of Systems Date Seen by Provider: May 17, 2017 Time Seen by Provider: 13:40 Objective Exam Last Set of Vital Signs Vital Signs Date Time Temp Pulse Resp B/P (MAP) Pulse Ox O2 Delivery O2 Flow Rate FiO2 05/17/17 16:00 97.5 91 18 109/55 94 Room Air Capillary Refill : I&O Intake and Output 05/18/17 00:00 Intake Total 1630 ml Output Total 1500 ml Balance 130 ml Intake Oral 630 ml IV Total 1000 ml Output Urine Total 1500 ml General: Alert, Oriented X3, Cooperative Psych/Mental Status: Mental Status NL, Mood NL Results/Procedures Lab Laboratory Tests 05/17/17 05:48: White Blood Count 7.4, Red Blood Count 3.45L, Hemoglobin 10.0L, Hematocrit 29L, Mean Corpuscular Volume 85, Mean Corpuscular Hemoglobin 29, Mean Corpuscular Hemoglobin Concent 34, Red Cell Distribution Width 16.6H, Platelet Count 275, Mean Platelet Volume 9.4, Sodium Level 135, Potassium Level 3.7, Chloride Level 107, Carbon Dioxide Level 20L, Anion Gap 8, Blood Urea Nitrogen 5L, Creatinine 0.65, Estimat Glomerular Filtration Rate > 60, BUN/Creatinine Ratio 8, Glucose Level 115H, Calcium Level 8.1L, Magnesium Level 1.4L Radiology CXR 05/13/17: IMPRESSION: Stable large consolidation in the right perihilar region with suspected underlying mass and right upper lobe patchy infiltrates. There is right-sided pleural thickening and pleural effusion as well. No significant change. Assessment/Plan Assessment/Plan Plan Debility- PT, suspect due to combination of likely lung cancer and poor intake Check CBC -05/14 Hgb decreased today, possibly hemodilution, monitor 05/16 stable at 10.4 Nausea/vomiting- ondansetron, promethazine prn, suspect due to underlying disease noted below -Check labs for possible dehydration/renal insufficiency -Labs on admit with AG acidosis, suspect from starvation ketoacidosis, improved with IVF overnight 05/16 persistent and with hypokalemia, discussed with him and family and he wants to consider whether a feeding tube may be needed. Discussed that it would be appropriate to defer that decision until biopsy results are available to determine treatment plan, especially since he is not entirely confident if he wants to pursue treatment even if a reasonable option is available. He is interested in starting the process, discussed that he would need an EGD first to rule out some sort of compression, etc causing his nausea/vomiting and if not present, surgery still may not recommend a feeding tube. With this understanding, he and family do want to proceed with Surgery consult and likely EGD, consult placed. 05/17 - taking po better Hypokalemia- follow and replace as needed Suspected lung cancer with associated wasting- work-up in progress, CT concerning for R sided mass, has already been treated with levofloxacin for possible infiltrate also associated. Is afebrile, will follow-up CBC. 05/13- Had a long discussion with patient about his wishes, he is insistent he doesn't want to "rack up bills", but he also does state he is satisfied with his life and that he knows everyone has to sometime and he is fairly confident he does not want to go through chemotherapy/radiation or other aggressive treatments. He is certain he does not want an attempt at resuscitation and requests to be DNAR status. His family is not present emilee , discussed that it would be good to have a family discussion, as outpatient consideration for hospice has already been done and declined. Discussed whether he wants to proceed with biopsy and he is undecided, but seems to be at least somewhat interested in proceeding if it is not an aggressive procedure. I agree proceeding with biopsy may be helpful for him and his family to confirm his diagnosis, but if he is confident he would not pursue any treatment, a biopsy is not needed. He will discuss further with his emilee and we will readdress tomorrow. 05/14- he does want to pursue biopsy for further information and decision making purposes, but still does not feel he would want aggressive treatment unless there would be a very clear benefit- he does not want to be sick from chemotherapy and repeatedly states he is satisfied with his life and he knows everyone will eventually. His states she is having a hard time seeing him so weak and wonders if a feeding tube would be helpful. Discussed that this would not be beneficial if his goals of care are comfort, and would have questionable benefit even if he were interested in treatment because it is unclear how beneficial treatment would be especially given his already significant decline. They would like to continue to reassess as information is available and his clinical course progresses. 05/15- biopsy today, plan for family meeting tomorrow pm to review his functional status and plans 05/16- see notes under above diagnoses, at this time he wants to pursue any treatment that can be done until he has a formal diagnosis and more information about treatment options. Discussed creating a DPOA and living will and social work offered assistance in doing so if he desires DVT ppx- enoxaparin Clinical Quality Measures DVT/VTE Risk/Contraindication: Risk Factor Score Per Nursin RFS Level Per Nursing on Admit: 4+=Very High LELIA JOHNSON DO May 17, 2017 19:42
[2017-05-18] VITALS: BP 99/56
[2017-05-18] MEDS: D5 1/2 NS W/KCL 20 MEQ/L 1,000 ML IV SCH ×2 (06:25→16:15)
[2017-05-18 08:00] VITALS: BP 111/56
--- NOTE | 2017-05-18 12:58 | Progress Note (SOAP) ---
Subjective Subjective/Events-last exam Pt sleeping. RN reports his appetite has been better. Ambulated in the [place] last night. Review of Systems Date Seen by Provider: May 18, 2017 Time Seen by Provider: 09:00 Objective Exam Last Set of Vital Signs Vital Signs Date Time Temp Pulse Resp B/P (MAP) Pulse Ox O2 Delivery O2 Flow Rate FiO2 05/18/17 08:17 Room Air 05/18/17 08:00 98.6 92 6 111/56 93 Capillary Refill : I&O Intake and Output 05/19/17 00:00 Intake Total 1100 ml Output Total 1000 ml Balance 100 ml Intake Oral 100 ml IV Total 1000 ml Output Urine Total 1000 ml Results/Procedures Radiology CXR 05/13/17: IMPRESSION: Stable large consolidation in the right perihilar region with suspected underlying mass and right upper lobe patchy infiltrates. There is right-sided pleural thickening and pleural effusion as well. No significant change. Assessment/Plan Assessment/Plan Plan Debility- PT, suspect due to combination of likely lung cancer and poor intake Check CBC -05/14 Hgb decreased today, possibly hemodilution, monitor 05/16 stable at 10.4 Nausea/vomiting- ondansetron, promethazine prn, suspect due to underlying disease noted below -Check labs for possible dehydration/renal insufficiency -Labs on admit with AG acidosis, suspect from starvation ketoacidosis, improved with IVF overnight 05/16 persistent and with hypokalemia, discussed with him and family and he wants to consider whether a feeding tube may be needed. Discussed that it would be appropriate to defer that decision until biopsy results are available to determine treatment plan, especially since he is not entirely confident if he wants to pursue treatment even if a reasonable option is available. He is interested in starting the process, discussed that he would need an EGD first to rule out some sort of compression, etc causing his nausea/vomiting and if not present, surgery still may not recommend a feeding tube. With this understanding, he and family do want to proceed with Surgery consult and likely EGD, consult placed. 05/17 - taking po better Hypokalemia- follow and replace as needed Suspected lung cancer with associated wasting- work-up in progress, CT concerning for R sided mass, has already been treated with levofloxacin for possible infiltrate also associated. Is afebrile, will follow-up CBC. 05/13- Had a long discussion with patient about his wishes, he is insistent he doesn't want to "rack up bills", but he also does state he is satisfied with his life and that he knows everyone has to sometime and he is fairly confident he does not want to go through chemotherapy/radiation or other aggressive treatments. He is certain he does not want an attempt at resuscitation and requests to be DNAR status. His family is not present emilee , discussed that it would be good to have a family discussion, as outpatient consideration for hospice has already been done and declined. Discussed whether he wants to proceed with biopsy and he is undecided, but seems to be at least somewhat interested in proceeding if it is not an aggressive procedure. I agree proceeding with biopsy may be helpful for him and his family to confirm his diagnosis, but if he is confident he would not pursue any treatment, a biopsy is not needed. He will discuss further with his emilee and we will readdress tomorrow. 05/14- he does want to pursue biopsy for further information and decision making purposes, but still does not feel he would want aggressive treatment unless there would be a very clear benefit- he does not want to be sick from chemotherapy and repeatedly states he is satisfied with his life and he knows everyone will eventually. His states she is having a hard time seeing him so weak and wonders if a feeding tube would be helpful. Discussed that this would not be beneficial if his goals of care are comfort, and would have questionable benefit even if he were interested in treatment because it is unclear how beneficial treatment would be especially given his already significant decline. They would like to continue to reassess as information is available and his clinical course progresses. 05/15- biopsy today, plan for family meeting tomorrow pm to review his functional status and plans 05/16- see notes under above diagnoses, at this time he wants to pursue any treatment that can be done until he has a formal diagnosis and more information about treatment options. Discussed creating a DPOA and living will and social work offered assistance in doing so if he desires 05/18 - lung biopsy path report pending DVT ppx- enoxaparin Clinical Quality Measures DVT/VTE Risk/Contraindication: Risk Factor Score Per Nursin RFS Level Per Nursing on Admit: 4+=Very High LELIA JOHNSON DO May 18, 2017 12:58
[2017-05-18 16:00] VITALS: BP 102/55
[2017-05-18] MEDS: RT-ALBUTEROL/IPRATROPIUM 3 ML (DUONEB) VIAL INH SCH (19:13)
[2017-05-19 00:57] VITALS: BP 106/60
[2017-05-19] MEDS: D5 1/2 NS W/KCL 20 MEQ/L 1,000 ML IV SCH ×2 (01:47→02:20)
[2017-05-19 07:48] VITALS: BP 103/51
[2017-05-19] MEDS: RT-ALBUTEROL/IPRATROPIUM 3 ML (DUONEB) VIAL INH SCH (08:13)
--- NOTE | 2017-05-19 11:23 | Discharge Summary ---
Diagnosis/Chief Complaint Date of Admission May 14, 2017 at 12:29 pm Date of Discharge May 19, 2017 Admission Diagnosis Admission Diagnosis SEE BELOW Discharge Diagnosis Debility- PT, suspect due to combination of likely lung cancer and poor intake Check CBC -05/14 Hgb decreased today, possibly hemodilution, monitor 05/16 stable at 10.4 DIS: No change. Nausea/vomiting- ondansetron, promethazine prn, suspect due to underlying disease noted below -Check labs for possible dehydration/renal insufficiency -Labs on admit with AG acidosis, suspect from starvation ketoacidosis, improved with IVF overnight 05/16 persistent and with hypokalemia, discussed with him and family and he wants to consider whether a feeding tube may be needed. Discussed that it would be appropriate to defer that decision until biopsy results are available to determine treatment plan, especially since he is not entirely confident if he wants to pursue treatment even if a reasonable option is available. He is interested in starting the process, discussed that he would need an EGD first to rule out some sort of compression, etc causing his nausea/vomiting and if not present, surgery still may not recommend a feeding tube. With this understanding, he and family do want to proceed with Surgery consult and likely EGD, consult placed. 05/17 - taking po better DIS: Doing much better. Will plan for EGD/PEG as an outpatient once we get diagnosis. Hypokalemia- follow and replace as needed Suspected lung cancer with associated wasting- work-up in progress, CT concerning for R sided mass, has already been treated with levofloxacin for possible infiltrate also associated. Is afebrile, will follow-up CBC. 05/13- Had a long discussion with patient about his wishes, he is insistent he doesn't want to "rack up bills", but he also does state he is satisfied with his life and that he knows everyone has to sometime and he is fairly confident he does not want to go through chemotherapy/radiation or other aggressive treatments. He is certain he does not want an attempt at resuscitation and requests to be DNAR status. His family is not present tonight , discussed that it would be good to have a family discussion, as outpatient consideration for hospice has already been done and declined. Discussed whether he wants to proceed with biopsy and he is undecided, but seems to be at least somewhat interested in proceeding if it is not an aggressive procedure. I agree proceeding with biopsy may be helpful for him and his family to confirm his diagnosis, but if he is confident he would not pursue any treatment, a biopsy is not needed. He will discuss further with his emilee and we will readdress tomorrow. 05/14- he does want to pursue biopsy for further information and decision making purposes, but still does not feel he would want aggressive treatment unless there would be a very clear benefit- he does not want to be sick from chemotherapy and repeatedly states he is satisfied with his life and he knows everyone will eventually. His states she is having a hard time seeing him so weak and wonders if a feeding tube would be helpful. Discussed that this would not be beneficial if his goals of care are comfort, and would have questionable benefit even if he were interested in treatment because it is unclear how beneficial treatment would be especially given his already significant decline. They would like to continue to reassess as information is available and his clinical course progresses. 05/15- biopsy today, plan for family meeting tomorrow pm to review his functional status and plans 05/16- see notes under above diagnoses, at this time he wants to pursue any treatment that can be done until he has a formal diagnosis and more information about treatment options. Discussed creating a DPOA and living will and social work offered assistance in doing so if he desires 05/18 - lung biopsy path report pending DIS: Pt and family decided he would go home for the holidays. I did call and the path report was sent to [facility] for special staining. WE will plan to have a family meeting next Friday to discuss the results as we will likely have them by then. Family agreeable to this plan. Chief Complaint/HPI Chief Complaint/HPI 77 yo male sent to hospital for direct admission due to marked debility and inability to keep down any food for a week or more. He reports a history of weight loss starting November of up 60 lbs currently. In the last 3 weeks, he developed cough, nausea and vomiting with any intake, fatigue and shortness of breath. He was seen at [facility] and had a CXR with concerning findings followed by a CT scan which showed right upper lobe abnormality concerning for lung cancer, followed by PET scan which showed lesion in left iliac. He was to have an biopsy but has become so weak and sick to his stomach that his family didn't feel he would make it to his biopsy. Additionally, he has told Dr. Esparza that he does not want chemotherapy or radiation, etc even if he has lung cancer. He states he is concerned about racking up large medical bills before he dies which will burden his family. He also notes that he is 77 years old and has done what he wants with his life. Discharge Summary-Simple/Stand Consultations Discharge Physical Examination Allergies: Coded Allergies: No Known Drug Allergies (Unverified , 05/13/17) Vitals & I&Os Vital Sign - Last 12Hours Date Time Temp Pulse Resp B/P (MAP) Pulse Ox O2 Delivery O2 Flow Rate FiO2 05/19/17 08:13 92 Room Air 05/19/17 07:48 96.4 81 18 103/51 General Appearance: Alert, Oriented X3, Cooperative Respiratory: Clear to Auscultation, Normal Air Movement Cardiovascular: Regular Rate, Normal S1, Normal S2, No Murmurs, Gallops, Rubs Abdominal: Normal Bowel Sounds, Soft, No Tenderness, No Hepatosplenomegaly, No Masses Extremities: No Clubbing, No Cyanosis, No Edema Psych/Mental Status: Mental Status NL, Mood NL Hospital Course See final discharge diagnosis. Radiology Reviewed CXR 05/13/17: IMPRESSION: Stable large consolidation in the right perihilar region with suspected underlying mass and right upper lobe patchy infiltrates. There is right-sided pleural thickening and pleural effusion as well. No significant change. Discharge Instructions to patient/family Please see electronic discharge instructions given to patient. Discharge Medications Reviewed and agree with Discharge Medication list on patient's Discharge Instruction sheet Clinical Quality Measures DVT/VTE Risk/Contraindication: Risk Factor Score Per Nursin RFS Level Per Nursing on Admit: 4+=Very High Copy Copies To 1: LILIANE ESPARZA MD, JULIE A MD May 19, 2017 11:23
[2017-05-19] MEDS ORDERED: MEGE625O3 PO (11:32)
--- NOTE | 2017-05-19 11:38 | D/C HH Face to Face Order ---
D/C Face to Face Orders Instructions for Patient Patient Instructions/FollowUp: Dr Esparza FridayMay 25 at 1pm Physician to follow Patient: Antoine Discharge Diet for Home: No Restrictions Patient Problems: LUNG MASS - CONCERN FOR LUNG CANCER MALNUTRITION WEAKNESS Goals for Patient: IMPROVED ABILITY TO ADL'S WEIGHT MEASUREMENTS - INCREASE/MAINTAIN CURRENT WEIGHT Patient Data-Allergies,Ht & Wt Patient Allergies: Coded Allergies: No Known Drug Allergies (Unverified , 05/13/17) Height (Feet): 5 Height (Inches): 10.00 Weight (Pounds): 108 Weight (Ounces): 0.0 Home Health Need/Face to Face Date of Face to Face: May 19, 2017 Clinical Findings: Generalized weakness and fatigue, Muscle weakness, Unsteady gait I have seen Pt [id number]: Yes Discharged To: Home Diagnosis/Conditions: PLEASE SEE ABOVE Problems/Diagnosis/Condition: Patient is Homebound due to: Iván fall risk due to instabilty, Muscle weakness Homebound Status Due to the above stated illness, injury or surgical procedure (medical condition or diagnosis) and associated clinical findings, the patient is homebound because of his/her inability to leave home except with aid of a supportive device and/or person AND leaving the home requires a considerable and taxing effort or is medically contraindicated. Pt req the following assistanc: Aid of another person, Cane Home Health Nursing Orders Home Health Services Order: Nursing Services, Progress Clerk-Evaluate & Treat, Physical Therapy-Evaluate & Treat, Speech Language-Evaluate & Treat PLEASE FOLLOW WEIGHTS. PATIENT SHOULD BE DRINKING 3-4 ENSURE DAILY Home Health Infusion Therapy Line Type: Site Location: Arm-Upper Therapy Orders Therapy Orders: OT (must have SN or PT order), Physical Therapy, PT to assess for OT, Speech Language Pathology Therapy Specific Orders: Eval assistive deivces, Teach enviro modifications/ safety, Eval & treat dysphagia, Gait training, Increase strength/endurance Certify Stmt I certify that this patient is under my care and that I, a nurse practitioner or a physician; a carpenter assistant working with me, had a face to face encounter that - meets the physician face to face encounter requirements with this patient as dated. Copy Copies To 1: LILIANE ESPARZA MD, JULIE A MD May 19, 2017 11:38 am
[2017-05-19 13:30] VITALS: BP 128/68
== END 2017-05-19 13:30 | disposition home health service (06) | DRG 182 ==
LOC: 4TH 15:12 → UNDOADMOB 15:12 → 4TH 15:27 → OBSVTOIN 05-14 12:29 → INTOOBSV 05-14 12:29
PROVIDERS: ADMIT Pediatrics; ATTEND Family Medicine
PROC: 0BBK3ZX Excision of Right Lung, Percutaneous Approach, Diagnostic (ICD-10-PCS; principal; 2017-05-15)
DX: C34.11 Malignant neoplasm of upper lobe, right bronchus or lung (principal); R53.81 Other malaise; R11.2 Nausea with vomiting, unspecified; E87.6 Hypokalemia; Z66 Do not resuscitate; F17.290 Nicotine dependence, other tobacco product, uncomplicated
CPT/HCPCS: 36415; 71020; 71035; 77012; 80048; 80053; 81000; 83735; 84134; 85025; 85027; 85610; 85730; 88305; 88341; 88342; 88344; 93005; 94640; 94760; 99211; G0378